=== PATIENT | female | born 1975 | race Caucasian/White ===

== ENCOUNTER 2017-05-02 23:54 | Emergency (ER) | payer BC ==
[~2017-05-02] VITALS: Ht 157.5 cm; Wt 97.5 kg
[2017-05-03 00:15] VITALS: BP 128/85; Ht 157.5 cm; Wt 97.5 kg
== END 2017-05-03 00:59 | disposition home or self-care (01) ==
LOC: ED 23:54
DX: Z53.21 Procedure and treatment not carried out due to patient leaving prior to being seen by health care provider (principal)